=== PATIENT | male | born 1995 | race African-American/Black ===

== ENCOUNTER 2017-06-25 12:27 | Inpatient (IN) | payer OTHER ==
[~2017-06-25] VITALS: Ht 165.1 cm; Wt 70.5 kg
[2017-06-25 13:56] LABS: MEAN CORPUSCULAR HEMOGLOBIN 29.1 pg (27.0-33.0); MEAN CORPUSCULAR HGB CONC 33.8 g/dl (32.0-36.5); MEAN CORPUSCULAR VOLUME 86.1 fl (80.0-96.0); RED CELL DISTRIBUTION WIDTH 12.2 % (11.5-14.5); WHITE BLOOD COUNT 5.7 K/mm3 (4.0-10.0)
[2017-06-25 14:22] LABS: METHADONE URINE NEGATIVE (NEGATIVE)
[2017-06-25 14:23] LABS: ALBUMIN 4.4 GM/DL (3.2-5.2); ALBUMIN/GLOBULIN RATIO 1.26 (1.00-1.93); ALKALINE PHOSPHATASE 113 U/L (45-117); ALT/SGPT 17 U/L (12-78); ANION GAP 5 MEQ/L (8-16); AST/SGOT 21 U/L (15-37); BILIRUBIN,DIRECT 0.3 MG/DL (0.0-0.2); BILIRUBIN,TOTAL 1.1 MG/DL (0.2-1.0); BLOOD UREA NITROGEN 6 MG/DL (7-18); CALCIUM LEVEL 9.4 MG/DL (8.5-10.1); CARBON DIOXIDE LEVEL 29 MEQ/L (21-32); CHLORIDE LEVEL 107 MEQ/L (98-107); CREATININE FOR GFR 0.96 MG/DL (0.70-1.30); GLUCOSE, FASTING 86 MG/DL (70-105); POTASSIUM SERUM 3.9 MEQ/L (3.5-5.1); SODIUM LEVEL 141 MEQ/L (136-145); TOTAL PROTEIN 7.9 GM/DL (6.4-8.2)
[2017-06-25] MEDS ORDERED: MOM 30ML SUSPENSION UDC PO PRN (16:15)
[2017-06-25] MEDS ORDERED: ACETAMINOPHEN TAB 650MG DOSE (2X325MG) PO PRN (16:15)
[2017-06-25] MEDS ORDERED: traZODone 50 MG TAB PO PRN (16:15)
[2017-06-25] MEDS ORDERED: MAALOX 30 ML SUSP *UDC PO PRN (16:15)
[2017-06-25 16:57] VITALS: BP 135/77
[2017-06-25 18:32] VITALS: BP 142/72
[2017-06-26 06:55] VITALS: BP 108/58
--- NOTE | 2017-06-26 10:16 | HPEPDOC ---
Medical History and Physical Date of Admission Jun 25, 2017 at 16:01 History and Physical PCP: [facility] ATTENDING: Dr. Nicola Morgan HPI: 22yoM admitted to [facility] for unspecified mood disorder, being medically examined today. No acute medical complaints today. Denies any fevers, chills, weakness, fatigue, MOORE, CP, SOB, cough, palpitations, abdominal pain, N/V/D or changes in bowel or bladder habits. 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 ROS: As noted in HPI, otherwise 11pt ROS of systems reviewed and unremarkable. PE: GEN: 22yoM, appears stated age. Well-nourished, well developed. No acute distress. Alert and oriented x 3. Pleasant, interactive. HEENT: Normocephalic, atraumatic. Pupils are equal, round, and reactive to light. Extraocular movements are intact. No nystagmus appreciated. Sclera are nonicteric. Conjunctiva without injection. Nose midline. Nasal turbinates without bogginess. EACs both patent BL. TMs both visualized and villalobos with good cone of light, no bulging or erythema. No facial asymmetry. Moist mucous membranes. Dentition fair. Pharynx pink and moist, no cobblestoning. Neck supple , trachea midline. No lymphadenopathy or thyromegaly appreciated. CHEST: Regular rate and rhythm, +S1, +S2 LUNGS: Clear to auscultation bilaterally. No wheezes, rales, or rhonchi. Breathing appears symmetric and easy. Patient is speaking in full sentences. No accessory muscle use. ABD: Round, soft, non-tender, non-distended. +Bowel sounds throughout. No rebound or guarding. No costovertebral angle tenderness. EXT: Pulses 2+ bilaterally dorsalis pedis and radial. No lower extremity edema appreciated. SKIN: [place], dry, warm. Capillary refill <2sec. No rashes. NEURO: Alert and oriented x 3. Cranial nerves III-XII are intact. No focal deficits appreciated. EKG: Pending. A&P: 22yoM admitted to [facility] for unspecified mood disorder 1. Psych. Plan per Psychiatry. Obtain baseline EKG to assure the safety of psychiatric medications as they can prolong the QT interval. 2. Follow up with PCP on discharge. 3. Staff member Neymar present throughout exam. Vital Signs Vital Signs Date Time Temp Pulse Resp B/P (MAP) Pulse Ox O2 Delivery O2 Flow Rate FiO2 06/26/17 06:55 98.3 55 16 108/58 (75) Room Air 06/25/17 16:19 97 Laboratory Data Labs 24H Laboratory Tests 2 06/25/17 13:28: Anion Gap 5L, Calcium Level 9.4, Aspartate Amino Transf (AST/SGOT) 21, Alanine Aminotransferase (ALT/SGPT) 17, Alkaline Phosphatase 113, Total Bilirubin 1.1H, Direct Bilirubin 0.3H, Total Protein 7.9, Albumin 4.4, Albumin/Globulin Ratio 1.26, Thyroid Stimulating Hormone (TSH) 1.050, Salicylates Level < 1.7L, Urine Amphetamines Screen NEGATIVE, Urine Benzodiazepines Screen NEGATIVE, Urine Opiates Screen NEGATIVE, Urine Methadone Screen NEGATIVE, Acetaminophen Level < 2.0L, Urine Barbiturates Screen NEGATIVE, Urine Phencyclidine Screen NEGATIVE, Urine Cocaine Metabolite Screen NEGATIVE, Urine Cannabinoids Screen NEGATIVE, Ethyl Alcohol Level < 0.003 CBC/BMP Laboratory Tests 06/25/17 13:28 Red Blood Count 5.07, Mean Corpuscular Volume 86.1, Mean Corpuscular Hemoglobin 29.1, Mean Corpuscular Hemoglobin Concent 33.8, Red Cell Distribution Width 12.2 Home Medications No Active Prescriptions or Reported Meds Allergies Coded Allergies: No Known Allergies (Unverified , 06/25/17) An Mann Jun 26, 2017 10:16
[2017-06-26] MEDS: buPROPion (WELLBUTRIN SR) 100 MG SR TAB PO SCH (13:10)
--- NOTE | 2017-06-26 14:16 | MHHPE ---
DATE OF ADMISSION: 06/25/2017 CURRENT MEDICATIONS: None. CHIEF COMPLAINT: "I have reached my breaking point." HISTORY OF PRESENT ILLNESS: This is a 32-year-old -[place] male, , living with his who is and due in November. 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 The patient states that he is full of anger. He hates people. He wakes up in the morning full of anger and rage. He goes to bed angry. He is afraid that he might explode. His unit is being deployed to [place] soon and he is afraid that he will not be safe and that he would be at risk of harming others in his company. The patient presented to the [facility] system on a walk in basis. He was sent to [facility] by Dr. Conley. The patient does admit to some depression. He feels sad off and on. He has had multiple losses over the past several years. All of his grandparents last year, for example. He feels that he never grieved their losses. His appetite is poor. He often forgets to eat, but states that his weight is stable. His concentration often wanders, especially at work. His level of energy is low. He often feels tired and fatigued. He feels exhausted, even on weekends when he is not physically active. All of his symptoms have been dating back for the past 2 or 3 months. The patient had a similar episode but much milder when he was a freshman or sophomore in high school. He did go see a therapist once but then dropped out of treatment and the symptoms resolved on their own. No history of panic attacks or phobias. No history of posttraumatic stress disorder (PTSD) or obsessive compulsive disorder (OCD). Caffeine consumption is minimal. PAST PSYCHIATRIC HISTORY: As mentioned above. The patient did see a therapist once in high school. He has never been hospitalized. He has never been on psychotropics. He has never seen a psychiatrist before. MEDICAL HISTORY: Healthy. SURGICAL HISTORY: Negative. ALLERGIES TO MEDICATIONS: None. LEGAL ISSUES: The patient denies. CHEMICAL DEPENDENCY HISTORY: Negative. FAMILY PSYCHIATRIC HISTORY: The patient states that his mother has been treated for sleep apnea. SOCIAL HISTORY: The patient was born and raised in the [facility]. He is a high school graduate. 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 The patient never knew his father. The relationship with his mother is good. The patient has a younger brother who is just graduating high school. The patient went into the straight out of high school. MENTAL STATUS EXAMINATION: The patient is alert, oriented and cooperative. The volume of his speech is quite low, making it hard to hear quite frequently. He does have some psychomotor retardation. Affect appears sad. Mood appears mildly to moderately depressed. He reports homicidal thoughts but no suicidal thoughts. Grooming and hygiene appear good. He is not hearing voices. No paranoia or thought disorder. No current signs of impulsivity or dangerousness, but he needed to be monitored closely. Memory functions appear intact. Insight and judgment appear fair. ASSESSMENT: The patient appears to have had an episode of major depression. He probably had a similar milder episode early in high school that resolved spontaneously. Further information will be requested from his . DIAGNOSIS: Major depression, single episode, moderate severity. PLAN: Start trial of Wellbutrin SR 100 mg in the morning. Risk and benefit profile on antidepressant reviewed. The patient is to start trazodone 50 mg at night for sleep. Involve in hospital milieu. 9.39 confirmed. Outreach to his spouse.
[2017-06-26 18:12] VITALS: BP 110/58
[2017-06-26] MEDS: traZODone 50 MG TAB PO SCH (21:38)
[2017-06-27 07:19] VITALS: BP 114/56
[2017-06-27] MEDS: buPROPion (WELLBUTRIN SR) 100 MG SR TAB PO SCH (08:53)
--- NOTE | 2017-06-27 12:53 | MHIPN ---
DATE: 06/27/2017 VITAL SIGNS: Temperature 99.0, pulse 57, respirations 16, blood pressure 114/56. CURRENT MEDICATIONS: - Wellbutrin SR 100 mg in the morning - trazodone 50 mg at night HISTORY OF PRESENT ILLNESS: The patient's visited last night. She is a big support for him. This helped his mood. He did get the Wellbutrin yesterday around lunchtime. He tolerated it well. He had more energy. He thinks that it helped his mood. He has no adverse side effects to it. He states that his anger is better today. He is not preoccupied by any homicidal or suicidal thoughts. He slept well last night with the trazodone. His appetite is good. MENTAL STATUS EXAMINATION: The patient is alert, oriented and cooperative. Affect is brighter. Volume of his speech is a bit louder, but it is still hard to make out at times. Mood is less depressed. Homicidal thoughts have resolved. He is not suicidal. Grooming and hygiene appear good. No signs of psychosis. Insight and judgment appear fair. DIAGNOSIS: Major depression, single episode. Moderate in severity. PLAN: Continue Wellbutrin/trazodone combination. Involve in hospital milieu. Staff to contact for collateral information.
[2017-06-27 18:07] VITALS: BP 114/58
[2017-06-27] MEDS: traZODone 50 MG TAB PO SCH (21:28)
--- NOTE | 2017-06-27 22:43 | ECGEPIP ---
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
[2017-06-28 07:23] VITALS: BP 112/56
[2017-06-28] MEDS: buPROPion (WELLBUTRIN SR) 100 MG SR TAB PO SCH (08:27)
[2017-06-28 18:00] VITALS: BP 145/69
--- NOTE | 2017-06-28 18:09 | MHIPN ---
DATE: 06/28/2017 VITAL SIGNS: Temperature 99.3, pulse 56, respirations 18, blood pressure 112/56. CURRENT MEDICATIONS: - Wellbutrin SR 100 mg every morning - trazodone 50 mg at bedtime HISTORY OF PRESENT ILLNESS: The patient reports feeling better. He has not had any homicidal ideation recently. His has been in to visit. His is also active [employer] as well. She is so she is not in a deployable status. She has informed him that he is not to be deployed either which he is happy with. The patient states he is laughing a lot. 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 He laughed a lot with his during her visit as well. He reports more energy since being on the medication. He is sleeping well at night and his appetite is good. MENTAL STATUS EXAMINATION: Mood and affect definitely improved. Affect is brighter. He has good eye contact. Volume of speech remains a bit low. Depression appears minimal. His homicidal thoughts have resolved. No currently signs of dangerousness. Grooming and hygiene appear good. The patient is not psychotic. Insight and judgment seem improved. DIAGNOSIS: Major depression, single episode. PLAN: Continue current psychotropic medications. The patient is encouraged to be involved in hospital milieu. Staff to contact to get her input.
[2017-06-28] MEDS: traZODone 50 MG TAB PO SCH (20:18)
[2017-06-29 07:00] VITALS: BP 152/61
[2017-06-29] MEDS: buPROPion (WELLBUTRIN SR) 100 MG SR TAB PO SCH (09:01)
[2017-06-29 18:00] VITALS: BP 134/75
--- NOTE | 2017-06-29 19:37 | MHIPN ---
DATE: 06/29/2017 VITAL SIGNS: Temperature 98.6, pulse 66, respirations 18, blood pressure 152/61. CURRENT MEDICATIONS: - Wellbutrin XR 100 mg every morning - trazodone 50 mg at bedtime HISTORY OF PRESENT ILLNESS: The patient denies any problems today. His appetite is good. He is sleeping well at night with the medication. Concentration is improving. His focus is better. He has read a whole book in the last 24 hours. He has no further anger issues. He has had no violent impulses to harm self or others. He feels calmer. He is more optimistic about the future. MENTAL STATUS EXAMINATION: Mood and affect improved. Affect definitely brighter. Volume of speech still remains low. Depression appears to be resolving. He is not homicidal, not suicidal. Grooming and hygiene appear quite good. No signs of psychosis. Insight and judgment are improved. DIAGNOSIS: Major depression, single episode. PLAN: Continue psychotropics. Involve in hospital milieu. Likely discharge early next week if patient does well over the weekend.
[2017-06-29] MEDS: traZODone 50 MG TAB PO SCH (20:48)
[2017-06-30 06:55] VITALS: BP 116/58
[2017-06-30] MEDS: buPROPion (WELLBUTRIN SR) 100 MG SR TAB PO SCH (08:15)
[2017-06-30 18:00] VITALS: BP 130/77
[2017-06-30] MEDS: traZODone 50 MG TAB PO SCH (20:33)
[2017-07-01 06:36] VITALS: BP 118/58
[2017-07-01] MEDS: buPROPion (WELLBUTRIN SR) 100 MG SR TAB PO SCH (08:59)
[2017-07-01 18:35] VITALS: BP 118/56
[2017-07-01] MEDS: traZODone 50 MG TAB PO SCH (20:58)
[2017-07-02 07:14] VITALS: BP 111/58
[2017-07-02] MEDS: buPROPion (WELLBUTRIN SR) 100 MG SR TAB PO SCH (08:27)
--- NOTE | 2017-07-02 14:50 | MHIPN ---
DATE OF SERVICE: 07/02/2017 VITAL SIGNS: Temperature 98.5, pulse 65, respirations 16, blood pressure 111/58. CURRENT MEDICATIONS: - Wellbutrin SR 100 mg every morning - trazodone 50 mg at bedtime HISTORY OF PRESENT ILLNESS: The patient reports he had a good weekend. His appetite is good. He sleeps well at night with the trazodone. His concentration is better. He has more energy. He feels positive about the future. He has had no issues with his temper. Rage attacks have resolved. He has no other complaints. MENTAL STATUS EXAMINATION: Mood and affect dramatically improved. He has good eye contact. Full range of affect. He smiles easily. He is not depressed. Not suicidal. Not homicidal. Grooming and hygiene are good. Insight and judgment much improved. No signs of dangerousness. DIAGNOSIS: Major depression, single episode. PLAN: Chain of command meeting tomorrow with discharge. JACQUI
[2017-07-02 18:00] VITALS: BP 131/75
[2017-07-02] MEDS: traZODone 50 MG TAB PO SCH (20:46)
[2017-07-03 07:04] VITALS: BP 107/65
[2017-07-03] MEDS: buPROPion (WELLBUTRIN SR) 100 MG SR TAB PO SCH (08:47)
[2017-07-03] MEDS ORDERED: BUPR10TASR PO (09:30)
[2017-07-03] MEDS ORDERED: TRAZO50TA PO (09:30)
--- NOTE | 2017-07-04 19:02 | MHDS ---
DATE OF ADMISSION: 07/05/2017 DATE OF DISCHARGE: 07/03/2017 VITAL SIGNS: Temperature 98.5, pulse 53, respirations 16, blood pressure 107/65. LABS: CBC within normal limits, serum chemistry within normal limits except for a total bilirubin 1.1, direct bilirubin 0.3, toxicology screen negative. DISCHARGE MEDICATIONS: - Wellbutrin SR 100 mg every morning - trazodone 50 mg at bedtime DISCHARGE DIAGNOSIS: Major depression single episode. 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 Patient is full of anger and rage. He hates people. He is afraid that he might explode. Patient is being deployed to [place] soon and he is afraid that he might explode while on duty. [facility] and was sent to the emergency room by Dr. Vale. Patient does have a history of depression. He feels sad and blue. He has had multiple losses over the past several years. He never grieved the losses of his grandparents who last year. His appetite is poor. His concentration wanders at work. His level of energy is low. He feels exhausted and tired. He does not sleep well at night. No previous psychiatric history. PROGRESS ON THE UNIT: Patients who is also active duty supported the patient being here on the unit. The patient himself was initially reluctant to participate in the hospital activities. He was started on Wellbutrin SR 75 mg every morning. He tolerated it well. No history of seizures. The dose was increased to 100 mg by mouth every morning. This was also well tolerated. The patients affect improved quickly. Insight improved. His anger and rage resolved. He no longer had impulses to harm himself or others. The patient became future oriented. He felt positive about the future. 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 Patient was agreeable to followup with [facility] upon discharge and appeared to reach maximal hospital benefit. MENTAL STATUS EXAM: Mood and affect appeared quite good at time of discharge. He had low range of affect. He was not homicidal or suicidal. No signs of depression. Anxiety was minimal. He was not psychotic, not hearing voices, no paranoia or thought disorder. Grooming and hygiene is quite good. No signs of impulsivity or dangerousness. ASSESSMENT: Patient has had rapid response to low dose of Wellbutrin and trazodone. PLAN: Followup with [facility]. Patient given 7-8 refills at the request of [facility].
== END 2017-07-03 11:20 | disposition home or self-care (01) | DRG 881 ==
LOC: M ED 12:27 → M ED INP 16:01 → M PSY 16:54
PROVIDERS: ADMIT Psychiatry & Neurology Psychiatry; ATTEND Psychiatry & Neurology Psychiatry
DX: F32.9 Major depressive disorder, single episode, unspecified (principal)